=== PATIENT | female | born 1955 | race Caucasian/White ===

== ENCOUNTER 2019-09-04 04:54 | Emergency (ER) | payer OTHER ==
[2019-09-04] MEDS ORDERED: predniSONE 20 MG TAB ONE (05:23)
[2019-09-04] MEDS ORDERED: Famotidine 20 MG TAB ONE (05:23)
== END 2019-09-04 05:58 | disposition home or self-care (01) ==
LOC: MADERS 04:54
DX: L50.0 Allergic urticaria (principal)
CPT/HCPCS: 99282; J7512